=== PATIENT | female | born 1990 | race Caucasian/White ===

== ENCOUNTER 2017-10-11 09:44 | Emergency (ER) | payer BC ==
[2017-10-11] MEDS ORDERED: Ibuprofen ADULT LIQ* 600 MG/30 ML UDC PO ONE (10:10)
[2017-10-11] MEDS ORDERED: HYDROcodone/ACETAMIN 5-325 MG* 1 TAB PO ONE (10:10)
--- NOTE | 2017-10-11 10:16 | UC ---
Knee Pain HPI - HPI Summary HPI Summary: Patient is complaining of a one-month history of increasing right knee pain. She denies any history of injury. She reports that the knee is a little swollen and at times gives out when she is walking. It is worse since yesterday after moving. She had seen her primary care for this and they felt it was a strain. She was treated with anti-inflammatory plus as needed Tylenol with codeine. Again she denies any associated injury, fever or illness. - History of Current Complaint Stated Complaint: RIGHT KNEE INJURY Time Seen by Provider: 10/11/17 10:09 Hx Obtained From: Patient Onset/Duration: Gradual Onset Severity Currently: Severe Aggravating Factor(s): Movement, Weight Bearing Alleviating Factor(s): Rest Associated Signs And Symptoms: Positive: Swelling. Negative: Numbness, Tingling Able to Bear Weight: Yes - Allergies/Home Medications Allergies/Adverse Reactions: Allergies Allergy/AdvReac Type Severity Reaction Status Date / Time amoxicillin [From Augmentin] Allergy Hives Verified 10/11/17 10:18 clavulanic acid Allergy Hives Verified 10/11/17 10:18 [From Augmentin] morphine Allergy Hives Verified 10/11/17 10:18 seasonal Allergy Runny Nose Uncoded 10/11/17 10:18 Home Medications: Home Medications Acetaminophen with Codeine [Acetaminophen/Codeine Luis 300-30 mg] 1 tab PO Q6H PRN 10/11/17 [History Confirmed 10/11/17] Dicyclomine CAP* [Bentyl CAP*] 10 mg PO SEE INSTRUCTIONS PRN 10/11/17 [History Confirmed 10/11/17] Levothyroxine TAB* [Synthroid TAB*] 125 mcg PO DAILY 10/11/17 [History Confirmed 10/11/17] PMH/Surg Hx/FS Hx/Imm Hx Endocrine History: Hypothyroidism - Family History Known Family History: Positive: None - Social History Lives: With Family Substance Use Type: None - Immunization History Vaccination Up to Date: Yes Review of Systems Constitutional: Negative Skin: Negative Eyes: Negative ENT: Negative Respiratory: Negative Cardiovascular: Negative Gastrointestinal: Negative Genitourinary: Negative Motor: Negative Neurovascular: Negative Musculoskeletal: Other: - R knee pain/swelling Neurological: Negative Psychological: Negative Is Patient Immunocompromised?: No All Other Systems Reviewed And Are Negative: Yes Physical Exam Triage Information Reviewed: Yes Appearance: Pain Distress Vital Signs Reviewed: Yes Eyes: Positive: Conjunctiva Clear ENT: Positive: Normal ENT inspection Neck: Positive: Supple Respiratory: Positive: Lungs clear, Normal breath sounds Cardiovascular: Positive: RRR, No Murmur Abdomen Description: Positive: Nontender, No Organomegaly, Soft Bowel Sounds: Positive: Present Musculoskeletal: Positive: Other: - Right lower extremity exam: Hip calf ankle and foot are without gross deformity swelling or discoloration. Those areas are nontender to palpation. Right knee when compared to left has mild swelling. Patient complains of some generalized tenderness with palpation. She complains of pain with flexion of the knee. Pain with both active and passive range of motion. There is no gross laxity on valgus varus anterior posterior stressing. The patella is not ballotable there is no apprehension with lateral stressing. Joint is not red or warm. Active and passive rom is intact. Neurological: Positive: Alert Psychological: Positive: Normal Response To Family, Age Appropriate Behavior Skin Exam: Normal Diagnostics - Radiology No standard instances Xray Interpretation: No Acute Changes Radiology Interpretation Completed By: Radiologist - R knee Knee Pain Course/Dx - Course Course Of Treatment: NO CONCERN FOR FX OR INFECTION. NO JOINT LAXITY. POSSIBLE MENISCAL INJURY. WILL STONE, CRUTCH AND REFER TO YOUR ORTHOPEDIST - Differential Dx/Diagnosis Provider Diagnoses: Acute R knee pain. R knee swelling Discharge - Sign-Out/Discharge Documenting (check all that apply): Discharge/Admit/Transfer - Discharge Plan Condition: Stable Disposition: HOME Prescriptions: Naproxen [Naprosyn 500 mg tab] 500 mg PO BID #10 tablet Patient Education Materials: Knee Pain (ED), Swollen Knee Joint (ED) Referrals: Andrew LANDERS,González Nieves [Primary Care Provider] - Additional Instructions: FOLLOW UP WITH [facility], DR AZAR(YOUR ORTHOPEDIST) . CALL IN AM FOR NEXT AVAILABLE APPOINTMENT - Billing Disposition and Condition Condition: STABLE Disposition: Home
[2017-10-11 10:17] VITALS: BP 127/84
--- NOTE | 2017-10-11 11:00 | RAD ---
HISTORY: PAIN AND SWELLING COMPARISONS: None VIEWS: 5, Frontal, lateral, axial, and oblique views of the right knee FINDINGS: BONE DENSITY: Normal. BONES: There is no displaced fracture. JOINTS: There is no arthropathy. There is no suprapatellar joint effusion or lipohemarthrosis. ALIGNMENT: There is no dislocation. SOFT TISSUES: Unremarkable. OTHER FINDINGS: None. IMPRESSION: NO ACUTE OSSEOUS INJURY. IF SYMPTOMS PERSIST, RECOMMEND REPEAT IMAGING.
== END 2017-10-11 11:19 | disposition home or self-care (01) ==
LOC: UCCORT 09:44
DX: M25.561 Pain in right knee (principal); M25.461 Effusion, right knee; Z88.5 Allergy status to narcotic agent; Z88.0 Allergy status to penicillin; Z88.8 Allergy status to other drugs, medicaments and biological substances; E03.9 Hypothyroidism, unspecified
CPT/HCPCS: 99203; A9270-GY; G0463